=== PATIENT | female | born 1935 | race African-American/Black ===

== ENCOUNTER → 2016-12-25 | Outpatient (CLI) | payer OTHER | END | disposition home or self-care (01) | LOC: CSSDAY 12:00 | DX: N17.9 Acute kidney failure, unspecified (principal); D50.9 Iron deficiency anemia, unspecified; K90.9 Intestinal malabsorption, unspecified | CPT/HCPCS: 36415; 36430; 86850; 86900; 86901; 86923; 96372; P9016 ==